=== PATIENT | male | born 1960 | race Caucasian/White ===

== ENCOUNTER 2018-11-16 21:22 | Emergency (ER) | payer MEDICARE ==
[~2018-11-16] VITALS: Ht 167.6 cm; Wt 68.0 kg
--- NOTE | 2018-11-16 21:25 | NUR ---
"C/O DOG BITES TO RIGHT UPPER EXT. AND LEFT LEG " PT AAOX4, -SOB, NAD NOTED, VSS, PENDING MD MELENDREZ
[2018-11-16] MEDS ORDERED: AMOX/CLAVULANATE 875 MG TABLET ONE (21:45)
[2018-11-16] MEDS ORDERED: HYDROCODONE/APAP 5/325MG 1 EACH TABLET ONE (21:45)
[2018-11-16] MEDS ORDERED: TDAP [DIPH/PERTUSSIS/TET] 0.5 ML VIAL IM ONE ×2 (21:50→22:00)
[2018-11-16] MEDS ORDERED: AMOX/CLAVULANATE 875 MG TABLET PO ONE (22:00)
[2018-11-16] MEDS ORDERED: HYDROCODONE/APAP 5/325MG 1 EACH TABLET PO ONE (22:00)
[2018-11-16] MEDS ORDERED: LIDOCAINE 1%-EPI 1:100,000 20 ML VIAL ONE (22:50)
--- NOTE | 2018-11-17 00:12 | NUR ---
Patient discharged to home in stable condition. Written and verbal after care instructions given. Patient verbalizes understanding of instruction.
[2018-11-17 00:23] VITALS: BP 149/80
== END 2018-11-17 00:26 | disposition home or self-care (01) ==
LOC: ER 21:30
DX: S51.851A Open bite of right forearm, initial encounter (principal); S81.852A Open bite, left lower leg, initial encounter; S61.451A Open bite of right hand, initial encounter; E11.9 Type 2 diabetes mellitus without complications; J45.909 Unspecified asthma, uncomplicated; Z60.2 Problems related to living alone; W54.0XXA Bitten by dog, initial encounter; Y93.89 Activity, other specified; Y92.096 Garden or yard of other non-institutional residence as the place of occurrence of the external cause; Y99.8 Other external cause status
CPT/HCPCS: 90471; 90715; 99284; A6403 ×3; J3490; 73090-TC

== ENCOUNTER 2018-11-17 08:05 | Inpatient (IN) | payer MEDICARE, MEDICAID ==
[~2018-11-17] VITALS: Ht 170.2 cm; Wt 68.0 kg
--- NOTE | 2018-11-17 08:17 | NUR ---
PT BIB SELF C/O DOG BITE YESTERDAY POSSBILE BONE FRAGMENT PRESENT ON THE WOUND, PT IS AAOX4, NOT IN RESPIRATORY DISTRESS, HOOKED TO MONITOR, KEPT RESTED AND COMFORTABLE, WILL CONTINUE TO MONITOR.
--- NOTE | 2018-11-17 08:28 | NUR ---
AT BEDSIDE FOR EVAL.
--- NOTE | 2018-11-17 08:34 | NUR ---
CALLED LA ORTHO ASSISTANT TO THE [facility] DR RUIZ
[2018-11-17] MEDS ORDERED: PIPERACILLIN /TAZOBACTAM 3.375 G in IV D5W 50 ML IV ONE (09:30)
--- NOTE | 2018-11-17 10:14 | NUR ---
CALLED FOR MS BED
[2018-11-17 10:28] LABS: BASOPHILS # (AUTO) 0.1 /CMM (0.0-0.2); BASOPHILS % (AUTO) 0.5 % (0.0-2.0); EOSINOPHILS % (AUTO) 0.8 % (0.0-6.0); HEMATOCRIT 45 % (39-51); HEMOGLOBIN 14.9 g/dL (13.5-17.5); LYMPHOCYTES # (AUTO) 1.3 /CMM (0.8-4.8); MEAN CORPUSCULAR HGB CONC 33 g/dl (31.0-36.0); MEAN CORPUSCULAR VOLUME 94 fL (80-96); MONOCYTES # (AUTO) 0.9 /CMM (0.1-1.30); MONOCYTES % (AUTO) 6.5 % (2.0-12.0); NEUTROPHILS # (AUTO) 10.9 /CMM (1.8-8.9); NEUTROPHILS % (AUTO) 82.2 % (43.0-81.0); PLATELET COUNT (AUTO) 262 /CMM (150-450); RED BLOOD CELL COUNT(AUTO) 4.76 MIL/uL (4.5-6.0); WHITE BLOOD COUNT (AUTO) 13.2 K/uL (4.3-11.0)
[2018-11-17 10:38] LABS: CALCIUM, SERUM 8.8 mg/dL (8.5-10.1); CREATININE 0.8 mg/dL (0.6-1.3); POTASSIUM 4.4 mmol/L (3.5-5.1)
--- NOTE | 2018-11-17 11:00 | NUR ---
COURT ATTENDANT AT BEDSIDE FOR XRAY.
[2018-11-17] MEDS ORDERED: ANESTHESIA TRAY IN PYXIS 1 EA TRAY MC ONE (11:01)
[2018-11-17] MEDS ORDERED: BACITRACIN 50000 UNITS/VIAL ONE (11:02)
[2018-11-17] MEDS ORDERED: IV D5/0.45 NACL 1,000 ML IV PRN (11:15)
[2018-11-17] MEDS ORDERED: FENTANYL PF 100MCG/2ML AMPUL ONE (11:28)
--- NOTE | 2018-11-17 11:28 | NUR ---
Patient Tranfers to OR, report given to DRE Leslie for vitaliy.
[2018-11-17] MEDS ORDERED: HYDROCODONE/APAP 5/325MG 1 EACH TABLET PO PRN (11:30)
[2018-11-17] MEDS ORDERED: MAG HYDROX/AL HYDROX/SIMETH 30 ML UDC PO PRN (11:30)
[2018-11-17] MEDS ORDERED: Z GUARD REMEDY 2 OZ OINT TP PRN (11:30)
[2018-11-17] MEDS ORDERED: INSULIN REGULAR, HUMAN 100 UNIT/ML 3 ML VIAL SQ PRN (11:30)
[2018-11-17] MEDS ORDERED: ACETAMINOPHEN 325 MG TABLET PO PRN (11:30)
[2018-11-17] MEDS ORDERED: ONDANSETRON HCL/PF 4 MG/2 ML VIAL IVP PRN (11:30)
[2018-11-17] MEDS ORDERED: *INSULIN REGULAR(HUMULIN R)HUM 100 UNIT/ML VIAL SQ PRN (11:30)
[2018-11-17] MEDS ORDERED: MAGNESIUM HYDROXIDE 30 ML UDC PO PRN (11:30)
[2018-11-17] MEDS ORDERED: DEXTROSE 50%-WATER 50 ML DISP.SYRIN IV PRN (11:30)
[2018-11-17] MEDS ORDERED: MORPHINE SULFATE INJ 2 MG/ML DISP.SYRIN IV PRN (11:30)
[2018-11-17 11:32] VITALS: BP 147/80
[2018-11-17] MEDS ORDERED: BLOOD SUGAR DIAGNOSTIC 1 EACH STRIP VI SCH (12:00)
--- NOTE | 2018-11-17 13:20 | NUR ---
MERINGUER NOTES RECEIVED PT FROM OR . TRANSPORTED VIA BED WITH 2NURSES ASSIST. PT A/O X3-4. AMBULATORY. PT TOLERATING RA, WITH NO ACUTE RESPIRATORY DISTRESS NOTED. PT ALSO DENIES PAIN OR DISCOMFORT AT THIS TIME. PIV LAC WITH NS RUNNING BOLUS NOTED, INTACT AND NO INFILTRATION NOTED. PT HAS INTACT, CLEAN AND DRY DRESSING TO RFA NOTED. PT KEP COMFORTABLE. CALL LIGHT WITHIN REACH. ORIENTED WITH THE UNIT. PT STATING CONCERN OF DOING AMA AND REFUSE TO STAY OVERNIGHT AT THE HOSPITAL. WILL CONTINUE PLAN OF CARE.
--- NOTE | 2018-11-17 13:23 | NUR ---
RN NOTES PT DID NOT LET RN TO FINISH SKIN ASSESSMENT IN TAKING PICTURES. PT STATING WANTS TO GO HOME TODAY. CN MADE AWARE.
--- NOTE | 2018-11-17 13:25 | NUR ---
MS RN NOTES RECEIVED PT FROM OR. S/P FOREIGN BODY REMOVAL ON RFA. PT STATING WANTS TO EAT LUNCH AND GO HOME. FRIEND PRESENT AT BEDSIDE. RN EXPLAINED RISKS AND BENEFITS OF STAYING AT THE HOSPITAL AND AMA, PT STILL INSIST TO GO AMA TODAY. DR. RUIZ MADE AWARE AND MD/KR WELL.
--- NOTE | 2018-11-17 15:30 | NUR ---
MS BOBBIN WINDER NOTES PT DISCHARGED AMA. MD DR. LOWE AND DR. RUIZ AWARE. PT A/O X3-4, AMBULATORY. TOLERATING RA, WITH NO ACUTE RESPIRATORY DISTRESS NOTED. PT DENIES ANY PAIN OR DISCOMFORT. PIV TO LAC REMOVED, APPLIED DRESSING IN PLACE. AMA FORM SIGNED BY PT. PT HAS A PRESCRIPTION OF AUGMENTIN FROM ER YESTERDAY, /RUBY AWARE OF IT AND VERIFIED FOR PT TO CONTINUE FOR IT. PT HAS MEDICARE AND MEDICAL AND CAN FOLLOW UP WITH DR RUIZ OUTPATIENT. INFORMATION OF AND [facility] PROVIDED TO PT TO SCHEDULE A FOLLOW UP. PT AWARE AND HAPPY WITH THE RECOMMENDATION. ALL NEEDS ATTENDED. VS STABLE. PT ACCOMPANIED BY FRIEND LEFT AND ESCORTED TO THE LOBBY AT 1525. CN/ROSEY AND BOTH MD VERGARA AND MYNOR AWARE OF PT'S AMA.
[2018-11-17] MEDS ORDERED: PIPERACILLIN /TAZOBACTAM 3.375 G in IV D5W 100 ML IV SCH (17:00)
== END 2018-11-17 15:30 | disposition left against medical advice (07) | DRG 914 ==
LOC: ER 08:10 → MED 11:19
PROVIDERS: ADMIT Internal Medicine; ATTEND Internal Medicine
PROC: 0JCG0ZZ Extirpation of Matter from Right Lower Arm Subcutaneous Tissue and Fascia, Open Approach (ICD-10-PCS; principal; 2018-11-17)
DX: S51.841A Puncture wound with foreign body of right forearm, initial encounter (principal); W54.0XXA Bitten by dog, initial encounter; L03.011 Cellulitis of right finger; Y92.9 Unspecified place or not applicable; J45.909 Unspecified asthma, uncomplicated; E11.9 Type 2 diabetes mellitus without complications; S51.851A Open bite of right forearm, initial encounter; Y93.9 Activity, unspecified
CPT/HCPCS: 36415; 71045-TC; 73090-TC; 80048-TC; 82962-TC; 85025-TC; 85730-TC; 87081-TC; A4217; G0378; J1815; J2543; J3010; J3490; J7060

== ENCOUNTER 2018-12-14 09:42 | Outpatient (CLI) | payer MEDICARE, MEDICAID | END 2018-12-14 23:59 | disposition home or self-care (01) | LOC: RAD 09:42 | DX: M18.12 Unilateral primary osteoarthritis of first carpometacarpal joint, left hand (principal); M79.89 Other specified soft tissue disorders | CPT/HCPCS: 73140-TC ==